=== PATIENT | male | born 1990 | race Caucasian/White ===

== ENCOUNTER 2016-04-24 16:11 | Emergency (ER) | payer SELFPAY ==
[~2016-04-24] VITALS: Ht 177.8 cm; Wt 63.0 kg
[~2016-04-24 16:11] MED LIST: AMOX500C PO
[2016-04-24 16:14] VITALS: BP 118/66; PULSE 94; RESP 20; TEMP 98; O2SAT 96
[2016-04-24] MEDS ORDERED: SODIUM CHLOR 0.9% 1000 ML INJ 1,000 ML IV SCH (16:54)
[2016-04-24 17:49] LABS: ANION GAP 9 MEQ/L (5-15); AST (GOT) 18 U/L (15-37); BICARBONATE 31.3 MEQ/L (21.0-32.0); BLOOD UREA NITROGEN 6 MG/DL (7-18); CHLORIDE 94 MEQ/L (98-107); GLOMERULAR FILTRATION RATE 96 ML/MIN (>89); POTASSIUM 3.2 MEQ/L (3.5-5.1); SODIUM (NA) 134 MEQ/L (136-145)
[2016-04-24 17:52] LABS: ALKALINE PHOSPHATASE 62 U/L (45-117); ALT (GPT) 27 U/L (12-78); TOTAL BILIRUBIN ADULT 0.6 MG/DL (0.2-1.0)
[2016-04-24 17:54] LABS: AUTOMATED NEUTROPHIL # 7.6 TH/MM3 (1.8-7.7); BASOPHIL % 0.5 % (0.0-2.0); EOSINOPHIL # 0.1 TH/MM3 (0-0.4); EOSINOPHIL % 0.9 % (0.0-4.0); HEMATOCRIT 37.6 % (39.0-51.0); HEMO FLAGS DIFF FINAL; LYMPH % 12.5 % (9.0-44.0); LYMPHOCYTE # 1.3 TH/MM3 (1.0-4.8); MEAN CORPUSCULAR HEMOGLOBIN 27.7 PG (27.0-34.0); MONO % 11.1 % (0.0-8.0); PLATELET COUNT 157 TH/MM3 (150-450); RED BLOOD COUNT 4.76 MIL/MM3 (4.50-5.90); RED CELL DISTRIBUTION WIDTH 12.9 % (11.6-17.2); WHITE BLOOD COUNT 10.2 TH/MM3 (4.0-11.0)
[2016-04-24] MEDS ORDERED: POTASSIUM CHLORIDE 20 MEQ CONTROLLED RELEASE TAB PO ONE (18:00)
--- NOTE | 2016-04-24 18:06 | PD ---
HPI Chief Complaint: Skin Problem Time Seen by Provider: 17:59 Travel History International Travel<30 days: No Contact w/Intl Traveler<30days: No Traveled to known affect area: No History of Present Illness HPI 25-year-old male that presents to the ED for evaluation of rash to the hands and feet. Per patient she's had this rash for today. Per patient about 2-3 days ago he started having weakness and cold like symptoms with sore throat and congestion for which she took some DayQuil with some relief. Per patient the rash started today. Per patient is not really itchy or painful. Per patient the rash is mainly to the extremities but he also notices on his abdomen as well as on his knees and elbows. Patient also has it on his nose. He denies any fevers at this time but he did state having some chills and body aches. He denies any chest pain or shortness of breath. No new soaps or clothes. Patient does state having had recent intercourse with men. He denies any discharge or deformity on the penis. He does state having pain when he swallows. He has no allergies to medication. PFSH Past Medical History Medical History: Denies Significant Hx Diminished Hearing: Yes Tetanus Vaccination: < 5 Years Influenza Vaccination: No Past Surgical History Surgical History: No Previous Surgery Social History Alcohol Use: Yes (rare) Tobacco Use: No Substance Use: No Allergies-Medications (Allergen,Severity, Reaction): Coded Allergies: No Known Allergies (Unverified , 02/07/16) Reported Meds & Prescriptions Reported Meds & Active Scripts Active No Active Prescriptions or Reported Medications Review of Systems General / Constitutional: Positive: Chills, No: Fever, Weight Gain, Weight Loss, Other Eyes: No: Diploplia, Blurred Vision, Photophobia, Drainage, Redness, Foreign Body Sensation, Pain, Tearing, Blind Spots, Visual changes, Blindness, Other HENT: Positive: Sore Throat, Rhinitis, Congestion, No: Headaches, Vertigo, Lightheadedness, Rhinorrhea, Nosebleed, Neck Stiffness, Neck Pain, Masses, Gingival Bleeding, Dental Difficulties, Ear Discharge, Earache, Other Cardiovascular: No: Chest Pain or Discomfort, Palpitations, Irregular Rhythm, Tachycardia, Diaphoresis, Syncope, Dyspnea on exertion, Varicosities, Edema, Cyanosis, Varicosities, Phlebitis, Claudication, Other Respiratory: Positive: Cough, No: Shortness of Breath, Wheezing, Sneezing, Orthopnea, Hemoptysis, Stridor, Night Sweats, Pleuritic Pain, Other Gastrointestinal: No: Nausea, Vomiting, Diarrhea, Abdominal Pain, Hematemesis, Hematochezia, Constipation, Changes in Bowel Habits, Indigestion, Dysphagia, Loss of Appetite, Other Genitourinary: No: Urgency, Frequency, Dysuria, Nocturia, Hematuria, Decreased Urinary Output, Oliguria, Hesitancy, Dribbling, Incontinence, Pelvic Pain, Flank Pain, Dyspareunia, Discharge, Dysmenorrhea, Menorrhagia, Metorrhagia, Vaginal Bleeding, Other Musculoskeletal: No: Myalgias, Arthralgias, Limited ROM, Weakness, Cramping, Edema, Pain, Atrophy, Other Skin: Positive Rash, No Itching, No Dryness, No Lumps, No Hives, No Change in Pigmentation, No Change in nails, No Alopecia, No Lesions, No Breast Lumps, No Breast Tenderness, No Breast Swelling, No Other Neurologic: No: Weakness, Dizziness, Syncope, Focal Abnormalities, Coordination Problem, Tremor, Ataxia, Headache, Change in Mentation, Slurred Speech, Paresthesia, Incontinence, Seizures, Sensory Disturbance, Other Psychiatric: No: Anxiety, Depression, Suicidal Ideations, Disorder of Thought, Mood Disorder, Substance Abuse, Homicidal Ideation, Other Endocrine: No: Heat Intolerance, Cold Intolerance, Polyuria, Polydipsia, Other Hematologic/Lymphatic: No: Easy Bruising, Lymph Node Enlargement, Other Physical Exam Narrative GENERAL: SKIN: Warm and dry. Patient has a red circular rash on the extremities as well as the lower legs and the joints and the abdomen as well as the back. Some not undergoing area as well. Not pruritic. Not painful. Noticed lymphadenopathy noted. Genital exam: Done with female nurse present. Patient has no obvious deformity or rash noted on the testicles or the glans penis. Patient is not circumcised. No obvious mass or deformity. HEAD: Atraumatic. Normocephalic. EYES: Pupils equal and round 4 mm reactive to light and accommodation. No scleral icterus. No injection or drainage. ENT: No nasal bleeding or discharge. Mucous membranes pink and moist. Tongue is midline. No uvula deviation. Tonsils are slightly enlarged with exudates noted on the right tonsil. Patient does have a canker sore noted on the right lower gum area. No lymphadenopathy noted. TMs are clear with no sign of infection or perforation. Patient has a similar rash to the hands on the nose around the bridge of the nose as well as on the filtrum area. NECK: Trachea midline. No JVD. CARDIOVASCULAR: Regular rate and rhythm. No murmurs, S3, S4. RESPIRATORY: No accessory muscle use. Clear to auscultation. Breath sounds equal bilaterally. GASTROINTESTINAL: Abdomen soft, non-tender, nondistended. Hepatic and splenic margins not palpable. MUSCULOSKELETAL: Extremities without clubbing, cyanosis, or edema. No obvious deformities. Full range of motion of the upper and lower extremities bilaterally. Pupils pulses bilaterally. Neurovascular intact. NEUROLOGICAL: Awake and alert. No obvious cranial nerve deficits. Motor grossly within normal limits. Five out of 5 muscle strength in the arms and legs. Normal speech. PSYCHIATRIC: Appropriate mood and affect; insight and judgment normal. Data Data Last Documented VS Vital Signs Date Time Temp Pulse Resp B/P Pulse Ox O2 Delivery O2 Flow Rate FiO2 04/24/16 18:08 98.1 77 16 98/66 99 Room Air Orders Iv Access Insert/Monitor (04/24/16 16:54) Sodium Chlor 0.9% 1000 Ml Inj (Ns 1000 M (04/24/16 16:54) Complete Blood Count With Diff (04/24/16 16:54) Comprehensive Metabolic Panel (04/24/16 16:54) Westergren Sedimentation Rate (04/24/16 16:54) C-Reactive Protein (Crp) (04/24/16 16:54) Rapid Plasmin Reagin Screen (04/24/16 16:54) Hiv Antibody Screen (04/24/16 16:54) Hepatitis Profile (04/24/16 16:54) Potassium Chloride (Kcl) (04/24/16 18:00) Labs Laboratory Tests Test 04/24/16 17:00 White Blood Count 10.2 TH/MM3 Red Blood Count 4.76 MIL/MM3 Hemoglobin 13.2 GM/DL Hematocrit 37.6 % Mean Corpuscular Volume 79.0 FL Mean Corpuscular Hemoglobin 27.7 PG Mean Corpuscular Hemoglobin 35.0 % Concent Red Cell Distribution Width 12.9 % Platelet Count 157 TH/MM3 Mean Platelet Volume 10.1 FL Neutrophils (%) (Auto) 75.0 % Lymphocytes (%) (Auto) 12.5 % Monocytes (%) (Auto) 11.1 % Eosinophils (%) (Auto) 0.9 % Basophils (%) (Auto) 0.5 % Neutrophils # (Auto) 7.6 TH/MM3 Lymphocytes # (Auto) 1.3 TH/MM3 Monocytes # (Auto) 1.1 TH/MM3 Eosinophils # (Auto) 0.1 TH/MM3 Basophils # (Auto) 0.0 TH/MM3 CBC Comment DIFF FINAL Differential Comment Erythrocyte Sedimentation Rate 3 mm/hr Sodium Level 134 MEQ/L Potassium Level 3.2 MEQ/L Chloride Level 94 MEQ/L Carbon Dioxide Level 31.3 MEQ/L Anion Gap 9 MEQ/L Blood Urea Nitrogen 6 MG/DL Creatinine 0.96 MG/DL Estimat Glomerular Filtration 96 ML/MIN Rate Random Glucose 110 MG/DL Calcium Level 8.9 MG/DL Total Bilirubin 0.6 MG/DL Aspartate Amino Transf 18 U/L (AST/SGOT) Alanine Aminotransferase 27 U/L (ALT/SGPT) Alkaline Phosphatase 62 U/L C-Reactive Protein 16.00 MG/DL Total Protein 8.6 GM/DL Albumin 3.6 GM/DL MDM Medical Decision Making Medical Screen Exam Complete: Yes Emergency Medical Condition: Yes Medical Record Reviewed: Yes Interpretation(s) CBC & BMP Diagram 04/24/16 17:00 CRP of 16 LFTs WNL ESR 3 Differential Diagnosis Hives versus allergic reaction versus syphilis versus STD versus [id number]- mouth disease versus viral illness Narrative Course 25-year-old male that presents to the ED for evaluation of rash. Patient was properly examined and was found to have signs and symptoms consistent appears to be a rash. Unclear etiology at this time. I have my attending Dr. Andrews evaluated the patient is patient's rash is nonspecific. Patient does have a history of sex with men. Concern for STD present. My attending recommends labs as well as STD screening for HIV and hepatitis and syphilis. Patient is agreeable with plan. Labs showed elevated CRP of 16 otherwise unremarkable. I spoke with labs and apparently there is no person to do serology until tomorrow so HIV and RPR will not be back until tomorrow. This was discussed in my attending who recommends because the rash looks similar to syphilis and because of patient's promiscuous sexual and immunological and tractions she recommends treating prophylactically for syphilis. Patient agrees with this plan. Patient was given IM dose of penicillin. Patient was discharged home with instructions that he will be contacted if any of his tests are positive. Patient agrees. Follow-up with PCP. See ED worsening symptoms. Diagnosis Primary Impression: Skin rash Additional Impression: Syphilis Patient Instructions: General Instructions Additional Instructions: Motrin or Tylenol for pain and fever as needed. Follow with PCP. See ED worsening symptoms. If any of your tests today are positive you will be contacted by phone and letter and instructed on treatment plan as needed. Med/Other Pt SpecificInfo: No Meds Exist/No RX given Scripts No Active Prescriptions or Reported Meds Disposition: 01 DISCHARGE HOME Condition: Hubert Mosley Apr 24, 2016 18:06
[2016-04-24 18:08] VITALS: BP 98/66; PULSE 77; RESP 16; TEMP 98.1; O2SAT 99
[2016-04-24] MEDS ORDERED: PENICILLIN G BENZATHINE 2,400,000 UNITS/4 ML SYRINGE IM ONE (18:45)
[2016-04-24 18:58] VITALS: BP 120/77; TEMP 98
[2016-04-25 13:54] LABS: RAPID PLASMA REAGIN SCREEN NON-REACTIVE (NON-REACTVE)
--- NOTE | 2016-04-26 08:56 | PD ---
Data Data Last Documented VS Vital Signs Date Time Temp Pulse Resp B/P Pulse Ox O2 Delivery O2 Flow Rate FiO2 04/24/16 18:58 98.0 76 17 120/77 99 04/24/16 18:08 Room Air Orders Iv Access Insert/Monitor (04/24/16 16:54) Sodium Chlor 0.9% 1000 Ml Inj (Ns 1000 M (04/24/16 16:54) Complete Blood Count With Diff (04/24/16 16:54) Comprehensive Metabolic Panel (04/24/16 16:54) Westergren Sedimentation Rate (04/24/16 16:54) C-Reactive Protein (Crp) (04/24/16 16:54) Rapid Plasmin Reagin Screen (04/24/16 16:54) Hiv Antibody Screen (04/24/16 16:54) Hepatitis Profile (04/24/16 16:54) Potassium Chloride (Kcl) (04/24/16 18:00) Penicillin G Benzathine Inj (Bicillin L- (04/24/16 18:45) Labs Laboratory Tests Test 04/24/16 17:00 White Blood Count 10.2 TH/MM3 Red Blood Count 4.76 MIL/MM3 Hemoglobin 13.2 GM/DL Hematocrit 37.6 % Mean Corpuscular Volume 79.0 FL Mean Corpuscular Hemoglobin 27.7 PG Mean Corpuscular Hemoglobin 35.0 % Concent Red Cell Distribution Width 12.9 % Platelet Count 157 TH/MM3 Mean Platelet Volume 10.1 FL Neutrophils (%) (Auto) 75.0 % Lymphocytes (%) (Auto) 12.5 % Monocytes (%) (Auto) 11.1 % Eosinophils (%) (Auto) 0.9 % Basophils (%) (Auto) 0.5 % Neutrophils # (Auto) 7.6 TH/MM3 Lymphocytes # (Auto) 1.3 TH/MM3 Monocytes # (Auto) 1.1 TH/MM3 Eosinophils # (Auto) 0.1 TH/MM3 Basophils # (Auto) 0.0 TH/MM3 CBC Comment DIFF FINAL Differential Comment Erythrocyte Sedimentation Rate 3 mm/hr Sodium Level 134 MEQ/L Potassium Level 3.2 MEQ/L Chloride Level 94 MEQ/L Carbon Dioxide Level 31.3 MEQ/L Anion Gap 9 MEQ/L Blood Urea Nitrogen 6 MG/DL Creatinine 0.96 MG/DL Estimat Glomerular Filtration 96 ML/MIN Rate Random Glucose 110 MG/DL Calcium Level 8.9 MG/DL Total Bilirubin 0.6 MG/DL Aspartate Amino Transf 18 U/L (AST/SGOT) Alanine Aminotransferase 27 U/L (ALT/SGPT) Alkaline Phosphatase 62 U/L C-Reactive Protein 16.00 MG/DL Total Protein 8.6 GM/DL Albumin 3.6 GM/DL Rapid Plasma Reagin NON-REACTIVE Hepatitis A IgM Antibody NEGATIVE Hepatitis B Surface Antigen NEGATIVE Hepatitis B Core IgM Antibody NEGATIVE Hepatitis C Antibody NEGATIVE HIV (1&2) Antibody NEGATIVE MDM Supervised Visit with BENEDICTO: Yes Narrative Course I, Dr. Michaels, have reviewed the advance practice practioner's documentation and am in agreement, met with the patient face to face, made the diagnosis, and the medical decision making was done by me. *My assessment and Findings: 25-year-old male here with complaint of rash. Has noticed that for the last day and has been ill with flulike symptoms, no generalized weakness, cough, cold, chest congestion for the last 2-3 days. Patient only notes the rash to the hands and the feet. On exam he has rash along the palmar/plantar aspect of the hands and feet and less so to the dorsal aspects. Patient also has rash in the periumbilical region, elbows, and around the neck. This is erythematous, raised, without excoriations, flaking, crusting. Patient notes history of sex with men, denies any new sexual partners or anal course. He has never been previously tested for sexually transmitted infections. Genital examination is unremarkable without lesions, rash. He denies a history of genital lesions. Symptoms are concerning for possible secondary syphilis given the palmar/plantar rash versus HIV seroconversion versus viral syndrome with associated rash. He has not had any recent travel to suggest ehrlichiosis, Purdy spotted fever, etc. Laboratory workup with elevated CRP of 16. RPR, HIV, hepatitis panel were sent , but will not result tampon day of visit. Patient was discharged home in empirically treated with penicillin G for possible syphilis. His results were followed up the following day by myself and thankfully are negative. Diagnosis Primary Impression: Skin rash Additional Impression: Syphilis Referrals: [facility] Patient Instructions: General Instructions, Syphilis (ED), Acute Rash (ED) Departure Forms: Work Release, Enter return to work date: Apr 26, 2016 Tests/Procedures Additional Instruction: Motrin or Tylenol for pain and fever as needed. Follow with PCP. See ED worsening symptoms. If any of your tests today are positive you will be contacted by phone and letter and instructed on treatment plan as needed. Scripts No Active Prescriptions or Reported Meds Disposition: 01 DISCHARGE HOME Condition: Stable Muna Michaels MD Apr 26, 2016 08:56
== END 2016-04-24 18:59 | disposition home or self-care (01) ==
LOC: NEPE 16:11
DX: A53.9 Syphilis, unspecified (principal); R21 Rash and other nonspecific skin eruption; Z72.52 High risk homosexual behavior
CPT/HCPCS: 80053; 80074; 85025; 85652; 86140; 86592; 86703; 96360; 96372; 99283; J0561; J7030